=== PATIENT | female | born 1955 | race Caucasian/White ===

== ENCOUNTER 2017-04-06 18:33 | Emergency (ER) | payer SELFPAY ==
[2017-04-06 19:27] VITALS: BP 113/80
[2017-04-06 19:47] LABS: Basophils % (Auto) 0.5 % (0.0-1.8); Eosinophils % (Auto) 0.6 % (0.0-4.3); Hematocrit 39.5 % (30.3-42.9); Mean Corpuscular HGB Conc 33 % (30-34); Mean Corpuscular Hemoglobin 30 pg (28-32); Mean Corpuscular Volume 92 fl (79-97); Platelet Count 224 K/mm3 (140-440); Red Blood Count 4.28 M/mm3 (3.65-5.03); Red Cell Distribution Width 14.4 % (13.2-15.2); White Blood Count 8.9 K/mm3 (4.5-11.0)
[2017-04-06 20:22] LABS: Albumin 4.3 g/dL (3.9-5); Albumin/Globulin Ratio 1.4 %; BUN/Creatinine Ratio 15.29; Bilirubin,Total 0.3 mg/dL (0.1-1.2); Calcium 10.7 mg/dL (8.4-10.2); Chloride 103.1 mmol/L (98-107); Total Protein 7.3 g/dL (6.3-8.2)
== END 2017-04-07 00:02 | disposition left against medical advice (07) ==
LOC: ED 18:33
DX: R42 Dizziness and giddiness (principal); R51 Headache; E11.9 Type 2 diabetes mellitus without complications; I10 Essential (primary) hypertension; Z53.21 Procedure and treatment not carried out due to patient leaving prior to being seen by health care provider
CPT/HCPCS: 36415; 80053; 85025

== ENCOUNTER 2017-11-13 00:53 | Emergency (ER) | payer OTHER ==
[2017-11-13 01:19] VITALS: BP 95/65
[2017-11-13 01:48] LABS: INR 0.86 (0.87-1.13)
[2017-11-13 01:49] LABS: Partial Thromboplastin Time 28.6 Sec. (24.2-36.6); Thrombin Time 19.9 Sec. (15.1-19.6)
[2017-11-13 01:50] LABS: Basophils % (Auto) 0.5 % (0.0-1.8); Eosinophils # (Auto) 0.1 K/mm3 (0.0-0.4); Eosinophils % (Auto) 1.6 % (0.0-4.3); Hematocrit 29.9 % (30.3-42.9); Lymphocytes # (Auto) 2.1 K/mm3 (1.2-5.4); Lymphocytes % (Auto) 35.4 % (13.4-35.0); Mean Corpuscular HGB Conc 34 % (30-34); Mean Corpuscular Hemoglobin 30 pg (28-32); Mean Corpuscular Volume 90 fl (79-97); Monocytes # (Auto) 0.4 K/mm3 (0.0-0.8); Monocytes % (Auto) 7.6 % (0.0-7.3); Platelet Count 188 K/mm3 (140-440); Red Blood Count 3.31 M/mm3 (3.65-5.03); Red Cell Distribution Width 13.7 % (13.2-15.2)
--- NOTE | 2017-11-13 02:03 | Cat Scan Report ---
FINAL REPORT EXAM: CT HEAD/BRAIN WO CON HISTORY: DIZZY, SHAKEY, BLURRED VISION, SLURRED SPEECH TECHNIQUE: Routine axial imaging was obtained of the brain without IV contrast. FINDINGS: There is diminished attenuation of the periventricular and deep white matter bilaterally compatible chronic microvascular disease changes. There is no evidence of acute stroke or hemorrhage. The ventricular system is appropriate in size and is symmetric. The basal cisterns appear normal. The visualized sinuses are clear. The mastoid air cells are well pneumatized. The calvarium appears intact. IMPRESSION: Diminished attenuation of the periventricular and deep white matter compatible with chronic microvascular disease changes. No evidence of acute stroke or hemorrhage.
[2017-11-13 03:28] LABS: BUN/Creatinine Ratio 21; Blood Urea Nitrogen 25 mg/dL (7-17); Calcium 10.2 mg/dL (8.4-10.2); Hemolysis Index 4
== END 2017-11-13 16:26 | disposition left against medical advice (07) ==
LOC: ED 00:53
DX: R42 Dizziness and giddiness (principal); Z53.21 Procedure and treatment not carried out due to patient leaving prior to being seen by health care provider
CPT/HCPCS: 36415; 70450; 80048; 82962; 84484; 85025; 85610; 85670; 85730

== ENCOUNTER 2018-04-10 22:16 | Emergency (ER) | payer OTHER ==
[2018-04-11 00:32] LABS: Calcium 10.4 mg/dL (8.4-10.2)
[2018-04-11 00:33] LABS: Basophils % (Auto) 0.4 % (0.0-1.8); Eosinophils # (Auto) 0.1 K/mm3 (0.0-0.4); Eosinophils % (Auto) 1.8 % (0.0-4.3); Hematocrit 30.1 % (30.3-42.9); Hemoglobin 10.1 gm/dl (10.1-14.3); Lymphocytes # (Auto) 3.7 K/mm3 (1.2-5.4); Lymphocytes % (Auto) 51.8 % (13.4-35.0); Mean Corpuscular HGB Conc 34 % (30-34); Mean Corpuscular Hemoglobin 30 pg (28-32); Mean Corpuscular Volume 88 fl (79-97); Monocytes # (Auto) 0.5 K/mm3 (0.0-0.8); Monocytes % (Auto) 7.6 % (0.0-7.3); Platelet Count 204 K/mm3 (140-440); Red Blood Count 3.41 M/mm3 (3.65-5.03); Red Cell Distribution Width 15.3 % (13.2-15.2)
[2018-04-11 00:58] LABS: Bilirubin,Urine NEG (Negative); Blood,Urine SM (Negative); Color,Urine Straw (Yellow); Urobilinogen,Urine < 2.0 mg/dL (<2.0)
[2018-04-11] MEDS ORDERED: LOPRESSOR PO ONE (05:05)
[2018-04-11] MEDS ORDERED: KEFLEX PO ONE (05:08)
--- NOTE | 2018-04-11 05:19 | Emergency Department Report ---
ED General Adult HPI - General Chief complaint: High BP Stated complaint: HIGH BP/HEADACHE Time Seen by Provider: 04/11/18 04:52 Source: patient Mode of arrival: Ambulatory Limitations: No Limitations - History of Present Illness Initial comments: Pt was feeling off earlier today. Her daughter took her blood pressure and the top number was 180. So, she was brought to the ER for evaluation. Patient has a history of noncompliance with her blood pressure medication. She is currently taking losartan and clonidine. Patient was seen by her family doctor last week as part of a routine checkup. Her blood pressure was high at that point in time to. According to the daughter, she was just represcribed her old blood pressure medication. The daughter has noticed that over the past couple of days, the patient has been acting more on and having balance difficulties. No medication changes. - Related Data Previous Rx's Medication Instructions Recorded Last Taken Type RX: Metoprolol [Lopressor TAB] 25 mg PO BID #30 tablet 04/11/18 Unknown Rx cephALEXin [Keflex] 500 mg PO Q8HR #12 cap 04/11/18 Unknown Rx Allergies Allergy/AdvReac Type Severity Reaction Status Date / Time No Known Allergies Allergy Unverified 04/06/17 19:27 ED Review of Systems ROS: Stated complaint: HIGH BP/HEADACHE Other details as noted in HPI Comment: All other systems reviewed and negative Neurological: confusion, abnormal gait ED Past Medical Hx - Past Medical History Previous Medical History?: Yes Hx Hypertension: Yes Hx Diabetes: Yes Hx Renal Disease: Yes (stage 3) - Surgical History Past Surgical History?: Yes Additional Surgical History: x1 - Social History Smoking Status: Former Smoker Substance Use Type: None - Medications Home Medications: Home Medications Medication Instructions Recorded Confirmed Last Taken Type RX: Metoprolol [Lopressor TAB] 25 mg PO BID #30 tablet 04/11/18 Unknown Rx cephALEXin [Keflex] 500 mg PO Q8HR #12 cap 04/11/18 Unknown Rx ED Physical Exam - General Limitations: No Limitations General appearance: alert, in no apparent distress - Head Head exam: Present: atraumatic, normocephalic - Eye Eye exam: Present: normal appearance - ENT ENT exam: Present: mucous membranes moist - Neck Neck exam: Present: normal inspection - Respiratory Respiratory exam: Present: normal lung sounds bilaterally. Absent: respiratory distress - Cardiovascular Cardiovascular Exam: Present: regular rate, normal rhythm. Absent: systolic murmur, diastolic murmur, rubs, gallop - GI/Abdominal GI/Abdominal exam: Present: soft, normal bowel sounds. Absent: distended, tenderness, guarding - Extremities Exam Extremities exam: Present: normal inspection - Back Exam Back exam: Present: normal inspection - Neurological Exam Neurological exam: Present: alert, oriented X3 - Psychiatric Psychiatric exam: Present: normal affect, normal mood - Skin Skin exam: Present: warm, dry, intact, normal color. Absent: rash ED Course Vital Signs 04/10/18 23:11 Temperature 98.6 F Pulse Rate 90 Respiratory 18 Rate Blood Pressure 173/110 O2 Sat by Pulse 100 Oximetry - Reevaluation(s) Reevaluation #1: CT head is unremarkable for acute changes. I offered the patient and her daughter admission for observation. They preferred to go home. Patient will be started on metoprolol and place clonidine. She will also be given a prescription for Keflex. The patient has follow-up with her family doctor in 4 days for reevaluation. Return precautions have been discussed. Patient is cleared for discharge. 04/11/18 06:23 ED Medical Decision Making - Lab Data Result diagrams: 04/10/18 23:23 04/10/18 23:23 - EKG Data -: EKG Interpreted by Me EKG shows normal: sinus rhythm, axis, intervals, QRS complexes, ST-T waves Rate: normal - EKG Data Interpretation: no acute changes - Radiology Data Radiology results: report reviewed, image reviewed - Medical Decision Making 62 yo female with pmhx medication noncompliance, HTN that p/w elevated BP. Pt denies h/a at this time. BP is 220/112. She denied symptoms of her hypertension. Given patient's history of intermittent compliance, I do not think that clonidine as best medication for given its known side effect for rebound hypertension. The daughter agree with this. Patient was started on a low-dose metoprolol. She has follow-up with her new family doctor in 4-5 days. I have instructed them to keep a blood pressure diary in the meantime. Urinalysis shows concerns for an early UTI. This likely could explain the patient's personality change, as well as mild difficulty walking. Post x-ray the patient with Keflex. Lab work shows mild hypokalemia with potassium of 3.4. It will be orally repleted. - Differential Diagnosis ICH, uti, acs, arrhythmia, electrolyte abnormality, dehydration, alzheimer' Critical care attestation.: If time is entered above; I have spent that time in minutes in the direct care of this critically ill patient, excluding procedure time. ED Disposition Clinical Impression: UTI (urinary tract infection), Hypertension Disposition: TO HOME OR SELFCARE Is pt being admited?: No Does the pt Need Aspirin: No Condition: Stable Instructions: Hypertension (ED), Urinary Tract Infection in Women (ED) Additional Instructions: Please follow-up with your family doctor in the next 4-5 days. If things worsen in the meantime or become concerning, please return to the ER for reevaluation. Prescriptions: cephALEXin [Keflex] 500 mg PO Q8HR #12 cap RX: Metoprolol [Lopressor TAB] 25 mg PO BID #30 tablet Referrals: LAURA GILLESPIE MD [Primary Care Provider] - 3-5 Days
[2018-04-11] MEDS ORDERED: COZAAR PO ONE (05:32)
[2018-04-11] MEDS ORDERED: NORVASC PO ONE (05:32)
[2018-04-11] MEDS ORDERED: HCTZ PO ONE (05:32)
--- NOTE | 2018-04-11 05:53 | Cat Scan Report ---
FINAL REPORT EXAM: CT HEAD/BRAIN WO CON HISTORY: h/a, with h/o uncontrolled htn TECHNIQUE: Routine axial imaging was obtained of the brain without IV contrast. Comparison is made study of 11/13/2017. FINDINGS: There is mildly diminished attenuation of the periventricular and deep white matter compatible with chronic microvascular disease changes. There is no evidence of acute stroke or hemorrhage. The ventricular system is appropriate in size. The visualized sinuses are clear. The mastoid air cells are well pneumatized. IMPRESSION: Diminished attenuation of the periventricular and deep white matter compatible with chronic microvascular disease changes. No evidence of acute stroke or hemorrhage.
[2018-04-11 06:39] VITALS: BP 169/98
== END 2018-04-11 07:00 | disposition home or self-care (01) ==
LOC: ED 22:16
DX: I12.9 Hypertensive chronic kidney disease with stage 1 through stage 4 chronic kidney disease, or unspecified chronic kidney disease (principal); N39.0 Urinary tract infection, site not specified; R51 Headache; E11.22 Type 2 diabetes mellitus with diabetic chronic kidney disease; N18.3 Chronic kidney disease, stage 3 (moderate); Z87.891 Personal history of nicotine dependence
CPT/HCPCS: 36415; 70450; 80048; 81001; 82805; 83880; 84484; 85025; 93005; 93010

== ENCOUNTER 2019-02-02 07:46 | Emergency (ER) | payer OTHER ==
[2019-02-02] MEDS ORDERED: ASPIRIN PO ONE (07:52)
[2019-02-02] MEDS ORDERED: D50W (25GM) Syringe IV ONE ×2 (08:29→08:30)
[2019-02-02 08:33] LABS: Basophils # (Auto) 0.1 K/mm3 (0.0-0.1); Basophils % (Auto) 0.8 % (0.0-1.8); Eosinophils # (Auto) 0.2 K/mm3 (0.0-0.4); Eosinophils % (Auto) 2.1 % (0.0-4.3); Hematocrit 32.2 % (30.3-42.9); Hemoglobin 11.3 gm/dl (10.1-14.3); Lymphocytes # (Auto) 3.4 K/mm3 (1.2-5.4); Lymphocytes % (Auto) 41.9 % (13.4-35.0); Mean Corpuscular HGB Conc 35 % (30-34); Mean Corpuscular Volume 93 fl (79-97); Monocytes # (Auto) 0.8 K/mm3 (0.0-0.8); Monocytes % (Auto) 9.6 % (0.0-7.3); Platelet Count 234 K/mm3 (140-440); Red Blood Count 3.48 M/mm3 (3.65-5.03); Red Cell Distribution Width 13.8 % (13.2-15.2)
--- NOTE | 2019-02-02 08:38 | XRay Report ---
PROCEDURE: XR CHEST 1V AP TECHNIQUE: Chest radiograph single view. HISTORY: Chest Pain COMPARISONS: None . FINDINGS: No mediastinal shift. Cardiac silhouette is not enlarged. No pneumothorax, effusion, or focal pulmona ry opacity identified. No acute skeletal findings. IMPRESSION: No acute pulmonary finding identified. This document is electronically signed by Huber Pennington MD., February 02 2019 08:35:59 AM ET
[2019-02-02 08:41] LABS: INR 0.95 (0.87-1.13); Partial Thromboplastin Time 25.5 Sec. (24.2-36.6)
[2019-02-02 08:54] LABS: Albumin 3.9 g/dL (3.9-5); Calcium 9.9 mg/dL (8.4-10.2)
--- NOTE | 2019-02-02 09:57 | Cat Scan Report ---
PROCEDURE: CT HEAD/BRAIN WO CON TECHNIQUE: Computerized tomography of the head was performed without contrast material. CT DOSE LENGTH PRODUCT: 805.4 mGy-cm. HISTORY: headache COMPARISONS: CT head April 11, 2018. FINDINGS: Decreased attenuation regions in the periventricular and subcortical white matter are nonspecific and may represent small vessel ischemic disease, encephalopathy, edema, or a demyelinating process. Smal l vessel ischemic disease (leukoaraiosis) favored. Vascular calcifications. There is no evidence for acute ischemia. There is no hemorrhage. There is no midline shift. There is no hydrocephalus. There is no mass. Age appropriate riley-white matter attenuation is noted. There is no calvarial fracture. The temporal bones demonstrate aerated mastoid air cells. The middle ears appear unremarkable. Mild mucosal thickening both ethmoid sinuses. Globes are intact. IMPRESSION: * Comparison with prior will be made as an addendum once requested prior images and report are provi ded. * No acute intracranial findings. * Chronic ischemic disease. This document is electronically signed by Stephan Osborne MD., February 02 2019 09:55:27 AM ET
[2019-02-02] MEDS ORDERED: K-DUR PO ONE (12:04)
--- NOTE | 2019-02-02 12:04 | Emergency Department Report ---
ED General Adult HPI - General Chief complaint: Syncope Stated complaint: PASSED OUT Time Seen by Provider: 02/02/19 08:08 Source: patient, family Mode of arrival: Wheelchair Limitations: No Limitations - History of Present Illness Initial comments: 63-year-old female who is a poor historian. He is on glipizide. She did not take her usual insulin this morning. She does not check her sugar. She had an episode of weakness and dizziness but again did not check her sugar. She did not pass out. She did not experience any focal weakness or numbness. She complains of a mild headache. She does not complain of any chest pain. She did not have nausea vomiting or diarrhea. She's had no recent fever or chills. The patient's first language does not appear to be Czech. She is here with her daughter that provides some additional information. Patient states that he "had a stroke 3 months ago". She did not go to the physician or hospital at at time. She states she has never had a CT of her head. According to her daughter she has episodes of weakness as she did today. -: Gradual, minutes(s) Severity scale (0 -10): 0 Consistency: now resolved Improves with: none Worsens with: none Associated Symptoms: denies other symptoms, weakness Treatments Prior to Arrival: none - Related Data Home Medications Medication Instructions Recorded Confirmed Last Taken Metoprolol [Lopressor TAB] 50 mg PO BID 02/02/19 02/02/19 Unknown amLODIPine 10 mg PO DAILY 02/02/19 02/02/19 Unknown glipiZIDE 5 mg PO BID 02/02/19 02/02/19 Unknown Allergies Allergy/AdvReac Type Severity Reaction Status Date / Time No Known Allergies Allergy Verified 02/02/19 08:19 ED Review of Systems ROS: Stated complaint: PASSED OUT Other details as noted in HPI Constitutional: weakness. denies: chills, fever Eyes: denies: eye pain, eye discharge, vision change ENT: denies: ear pain, throat pain Respiratory: denies: cough, shortness of breath, wheezing Cardiovascular: denies: chest pain, palpitations Endocrine: no symptoms reported Gastrointestinal: denies: abdominal pain, nausea, diarrhea Genitourinary: denies: urgency, dysuria, discharge Musculoskeletal: denies: back pain, joint swelling, arthralgia Skin: denies: rash, lesions Neurological: denies: headache, weakness, paresthesias Psychiatric: denies: anxiety, depression Hematological/Lymphatic: denies: easy bleeding, easy bruising ED Past Medical Hx - Past Medical History Previous Medical History?: Yes Hx Hypertension: Yes Hx Diabetes: Yes Hx Renal Disease: Yes (stage 3) - Surgical History Past Surgical History?: Yes Additional Surgical History: x1 - Social History Smoking Status: Never Smoker Substance Use Type: Prescribed - Medications Home Medications: Home Medications Medication Instructions Recorded Confirmed Last Taken Type Metoprolol [Lopressor TAB] 50 mg PO BID 02/02/19 02/02/19 Unknown History amLODIPine 10 mg PO DAILY 02/02/19 02/02/19 Unknown History glipiZIDE 5 mg PO BID 02/02/19 02/02/19 Unknown History ED Physical Exam - General Limitations: No Limitations General appearance: alert, in no apparent distress - Head Head exam: Present: atraumatic, normocephalic - Eye Eye exam: Present: normal appearance. Absent: scleral icterus - ENT ENT exam: Present: mucous membranes moist, other (forehead furrow asymmetry) - Neck Neck exam: Present: normal inspection, other (no carotid bruit). Absent: tenderness, meningismus - Respiratory Respiratory exam: Present: normal lung sounds bilaterally. Absent: respiratory distress - Cardiovascular Cardiovascular Exam: Present: regular rate, normal rhythm. Absent: systolic murmur, diastolic murmur, rubs, gallop - GI/Abdominal GI/Abdominal exam: Present: soft, normal bowel sounds. Absent: distended, tenderness, guarding, rebound, rigid - Extremities Exam Extremities exam: Present: normal inspection - Back Exam Back exam: Present: normal inspection - Neurological Exam Neurological exam: Present: alert, oriented X3. Absent: CN II-XII intact, motor sensory deficit - Psychiatric Psychiatric exam: Present: normal mood, flat affect - Skin Skin exam: Present: warm, dry, intact, normal color. Absent: rash ED Course Vital Signs 02/02/19 02/02/19 02/02/19 07:48 08:06 08:15 Temperature 97.8 F Pulse Rate 76 76 77 Respiratory 18 16 13 Rate Blood Pressure 181/103 159/102 Blood Pressure [Right] O2 Sat by Pulse 99 100 Oximetry 02/02/19 02/02/19 02/02/19 08:30 08:45 08:51 Temperature Pulse Rate 75 74 74 Respiratory 11 L 20 13 Rate Blood Pressure 159/102 Blood Pressure 160/96 [Right] O2 Sat by Pulse 100 100 100 Oximetry 02/02/19 02/02/19 02/02/19 09:00 10:03 10:16 Temperature Pulse Rate 74 Respiratory 14 Rate Blood Pressure 161/96 160/96 150/90 Blood Pressure [Right] O2 Sat by Pulse 100 100 100 Oximetry 02/02/19 02/02/19 02/02/19 10:30 10:46 11:00 Temperature Pulse Rate Respiratory Rate Blood Pressure 158/101 158/101 165/106 Blood Pressure [Right] O2 Sat by Pulse 100 100 100 Oximetry 02/02/19 02/02/19 11:16 11:30 Temperature Pulse Rate Respiratory Rate Blood Pressure 150/90 160/97 Blood Pressure [Right] O2 Sat by Pulse 100 100 Oximetry - Reevaluation(s) Reevaluation #1: Patient Accu-Chek done upon my encounter. It was low she was given a half an amp of D50. Her blood sugar was found to be 46. She was fed. Repeat sugar was 85. Patient states that she felt better. We will check a urinalysis. Referral for outpatient follow-up is anticipated. 02/02/19 12:30 Reevaluation #2: Remains alert and asymptomatic. Told to DC glipizide. Follow-up at [facility]. There are no stroke symptoms. 02/02/19 13:11 ED Medical Decision Making - Lab Data Result diagrams: 02/02/19 08:12 02/02/19 08:12 Laboratory Results - last 24 hr 02/02/19 02/02/19 02/02/19 08:12 08:12 08:12 WBC 8.0 RBC 3.48 L Hgb 11.3 Hct 32.2 MCV 93 MCH 32 MCHC 35 H RDW 13.8 Plt Count 234 Lymph % (Auto) 41.9 H Elbert % (Auto) 9.6 H Eos % (Auto) 2.1 Baso % (Auto) 0.8 Lymph # 3.4 Elbert # 0.8 Eos # 0.2 Baso # 0.1 Seg Neutrophils % 45.6 Seg Neutrophils # 3.7 PT 13.2 INR 0.95 APTT 25.5 Sodium Potassium Chloride Carbon Dioxide Anion Gap BUN Creatinine Estimated GFR BUN/Creatinine Ratio Glucose POC Glucose Calcium Total Bilirubin AST ALT Alkaline Phosphatase Troponin T < 0.010 Total Protein Albumin Albumin/Globulin Ratio 02/02/19 02/02/19 02/02/19 08:12 08:29 10:12 WBC RBC Hgb Hct MCV MCH MCHC RDW Plt Count Lymph % (Auto) Elbert % (Auto) Eos % (Auto) Baso % (Auto) Lymph # Elbert # Eos # Baso # Seg Neutrophils % Seg Neutrophils # PT INR APTT Sodium 144 Potassium 3.2 L Chloride 104.1 Carbon Dioxide 28 Anion Gap 15 BUN 27 H Creatinine 1.3 H Estimated GFR 42 BUN/Creatinine Ratio 21 Glucose 46 L POC Glucose 53 L 85 Calcium 9.9 Total Bilirubin 0.20 AST 10 ALT 10 Alkaline Phosphatase 73 Troponin T Total Protein 7.1 Albumin 3.9 Albumin/Globulin Ratio 1.2 - EKG Data -: EKG Interpreted by Me EKG shows normal: sinus rhythm, intervals, QRS complexes, ST-T waves Rate: normal - EKG Data Interpretation: LVH (consider), other (left axis deviation) - Radiology Data Radiology results: report reviewed FINDINGS: Decreased attenuation regions in the periventricular and subcortical white matter are nonspecific and may represent small vessel ischemic disease, encephalopathy, edema, or a demyelinating process. Small vessel ischemic disease (leukoaraiosis) favored. Vascular calcifications. There is no evidence for acute ischemia. There is no hemorrhage. There is no midline shift. There is no hydrocephalus. There is no mass. Age appropriate riley-white matter attenuation is noted. There is no calvarial fracture. The temporal bones demonstrate aerated mastoid air cells. The middle ears appear unremarkable. Mild mucosal thickening both ethmoid sinuses. Globes are intact. IMPRESSION: * Comparison with prior will be made as an addendum once requested prior images and report are provided. * No acute intracranial findings. * Chronic ischemic disease. Critical care attestation.: If time is entered above; I have spent that time in minutes in the direct care of this critically ill patient, excluding procedure time. ED Disposition Clinical Impression: Hypoglycemia, Insulin dependent diabetes mellitus Disposition: DC-01 TO HOME OR SELFCARE Is pt being admited?: No Does the pt Need Aspirin: No Condition: Stable Instructions: Diabetic Hypoglycemia (ED), Diabetes Mellitus Type 2 in Adults (ED) Additional Instructions: Stop glipizide medicine. Follow-up at this outside medical clinic. Return any acute change or problem. It is necessary to check your sugar when you on these type medicines. The glipizide medicine can cause hypoglycemia. I do not recommend that medicine at this time. Referrals: OFE BONE MD [Primary Care Provider] - 24 Hours Time of Disposition: 13:12
[2019-02-02 12:58] LABS: Bilirubin,Urine NEG (Negative); Blood,Urine NEG (Negative); Color,Urine Yellow (Yellow); Urobilinogen,Urine < 2.0 mg/dL (<2.0)
[2019-02-02 13:12] VITALS: BP 154/96
== END 2019-02-02 13:29 | disposition home or self-care (01) ==
LOC: ED 07:46
DX: E13.22 Other specified diabetes mellitus with diabetic chronic kidney disease (principal); E13.65 Other specified diabetes mellitus with hyperglycemia; I12.9 Hypertensive chronic kidney disease with stage 1 through stage 4 chronic kidney disease, or unspecified chronic kidney disease; N18.3 Chronic kidney disease, stage 3 (moderate)
CPT/HCPCS: 36415; 70450; 71045; 80053; 81001; 82962; 84484; 85025; 85610; 85730; 93005; 93010; 96374

== ENCOUNTER 2019-04-27 13:12 | Emergency (ER) | payer SELFPAY ==
--- NOTE | 2019-04-27 13:25 | Event Note ---
ED Screening Note Date of service: 04/27/19 Time: 13:20 ED Screening Note: 63 y o female with pmh of DM, HTN presenst for right sided headaceh and ear pain and drainage to r ear causing pain swelling to outer ear This initial assessment/diagnostic orders/clinical plan/treatment(s) is/are subject to change based on patients health status, clinical progression and re- assessment by fellow clinical providers in the ED. Further treatment and workup at subsequent clinical providers discretion. Patient/guardian urged not to elope from the ED as their condition may be serious if not clinically assessed and managed. Initial orders include: Main eval labs ct head?
[2019-04-27 14:08] LABS: Basophils # (Auto) 0.1 K/mm3 (0.0-0.1); Basophils % (Auto) 0.8 % (0.0-1.8); Eosinophils # (Auto) 0.1 K/mm3 (0.0-0.4); Eosinophils % (Auto) 1.2 % (0.0-4.3); Hematocrit 31.9 % (30.3-42.9); Hemoglobin 11.2 gm/dl (10.1-14.3); Lymphocytes # (Auto) 2.6 K/mm3 (1.2-5.4); Lymphocytes % (Auto) 32.6 % (13.4-35.0); Mean Corpuscular HGB Conc 35 % (30-34); Mean Corpuscular Volume 93 fl (79-97); Monocytes # (Auto) 0.8 K/mm3 (0.0-0.8); Monocytes % (Auto) 9.8 % (0.0-7.3); Platelet Count 255 K/mm3 (140-440); Red Blood Count 3.44 M/mm3 (3.65-5.03); Red Cell Distribution Width 13.8 % (13.2-15.2)
[2019-04-27 14:22] LABS: Calcium 10.1 mg/dL (8.4-10.2)
[2019-04-27 14:38] LABS: INR 0.88 (0.87-1.13)
[2019-04-27 14:43] LABS: Erythrocyte Sedimentation Rate 41 mm/Hr (0-20)
--- NOTE | 2019-04-27 14:59 | Cat Scan Report ---
CT head/brain wo con INDICATION: Headache. TECHNIQUE: Routine CT head without contrast. All CT scans at this location are performed using CT dos e reduction for ALARA by means of automated exposure control. COMPARISON: Head CT on 02/02/2019. FINDINGS: BRAIN / INTRACRANIAL CONTENTS: No acute hemorrhage, mass effect, midline shift, or hydrocephalus. No appreciable acute large territorial or lacunar infarct. There is stable moderate chronic microangiopa thic change in white matter. ORBITS: No significant abnormality of visualized orbits. SINUSES / MASTOIDS: There is trace mucosal thickening in the right sphenoid sinus and right mastoid a ir cells without aggressive features. ADDITIONAL FINDINGS: None. IMPRESSION: 1. No acute intracranial abnormality. No adverse change from the prior exam. Signer Name: Yuriy Krishnan MD Signed: 04/27/2019 2:55 PM Workstation Name: [id number]
[2019-04-27] MEDS ORDERED: NORMODYNE PO ONE (16:53)
--- NOTE | 2019-04-27 18:26 | Emergency Department Report ---
ED General Adult HPI - General Chief complaint: Headache Stated complaint: HBP/EAR DRAINAGE/HEADACHE Time Seen by Provider: 04/27/19 13:18 Source: patient, family Mode of arrival: Wheelchair Limitations: No Limitations - History of Present Illness Initial comments: Mrs. Holbrook is a 63-year-old female with history of hypertension and diabetes mellitus who presents with right ear pain and drainage with a right temporal headache. Gradual onset of symptoms 2 days ago. Blood pressure is elevated due to lack of access to care. She recently lost INSURANCE AND ACCESS TO HER HEALTHCARE PROVIDER. THE EAR INFECTION WAS CAUSED BY PROLONGED ACCESS TO RUNNING WATER TO THE EAR. SHE CLEANS OUT HER EAR WITH RUNNING WATER FROM faucet tap. SHE HAS YELLOWISH DRAINAGE and SWELLING ON THE OUTER EAR. DENIES FEVER. DENIES VISUAL CHANGES. MILD SYMPTOMS. -: Gradual, days(s) (2) Location: head Quality: aching, dull Improves with: none Worsens with: other (movement and palpation) Associated Symptoms: headaches - Related Data Home Medications Medication Instructions Recorded Confirmed Last Taken Metoprolol [Lopressor TAB] 50 mg PO BID 02/02/19 02/02/19 Unknown amLODIPine 10 mg PO DAILY 02/02/19 02/02/19 Unknown glipiZIDE 5 mg PO BID 02/02/19 02/02/19 Unknown Previous Rx's Medication Instructions Recorded Last Taken Type Ciprofloxacin/Hydrocortisone 3 drop OT BID 7 Days #1 bottle 04/27/19 Unknown Rx [Ciprofloxacin HC OTIC] Lisinopril [Zestril TAB] 40 mg PO QDAY #30 tablet 04/27/19 Unknown Rx amLODIPine [Norvasc] 10 mg PO DAILY #30 tab 04/27/19 Unknown Rx metFORMIN [Glucophage] 500 mg PO BID 30 Days #60 tablet 04/27/19 Unknown Rx Allergies Allergy/AdvReac Type Severity Reaction Status Date / Time No Known Allergies Allergy Verified 02/02/19 08:19 ED Review of Systems ROS: Stated complaint: HBP/EAR DRAINAGE/HEADACHE Other details as noted in HPI Comment: All other systems reviewed and negative Constitutional: denies: fever, malaise ENT: ear pain. denies: congestion Respiratory: denies: shortness of breath Cardiovascular: denies: chest pain ED Past Medical Hx - Past Medical History Previous Medical History?: Yes Hx Hypertension: Yes Hx Diabetes: Yes Hx Renal Disease: Yes (stage 3) - Surgical History Additional Surgical History: x1 - Social History Smoking Status: Never Smoker Substance Use Type: None - Medications Home Medications: Home Medications Medication Instructions Recorded Confirmed Last Taken Type Metoprolol [Lopressor TAB] 50 mg PO BID 02/02/19 02/02/19 Unknown History amLODIPine 10 mg PO DAILY 02/02/19 02/02/19 Unknown History glipiZIDE 5 mg PO BID 02/02/19 02/02/19 Unknown History Ciprofloxacin/Hydrocortisone 3 drop OT BID 7 Days #1 bottle 04/27/19 Unknown Rx [Ciprofloxacin HC OTIC] Lisinopril [Zestril TAB] 40 mg PO QDAY #30 tablet 04/27/19 Unknown Rx amLODIPine [Norvasc] 10 mg PO DAILY #30 tab 04/27/19 Unknown Rx metFORMIN [Glucophage] 500 mg PO BID 30 Days #60 tablet 04/27/19 Unknown Rx ED Physical Exam - General Limitations: No Limitations General appearance: alert, in no apparent distress - Head Head exam: Present: atraumatic, normocephalic - Eye Eye exam: Present: normal appearance - ENT ENT exam: Present: other (right ear is slightly edematous and very tender to palpation and movement, copious amount of white discharge) - Neck Neck exam: Present: normal inspection, full ROM - Respiratory Respiratory exam: Present: normal lung sounds bilaterally. Absent: respiratory distress, wheezes, rales, rhonchi - Cardiovascular Cardiovascular Exam: Present: regular rate, normal rhythm, normal heart sounds. Absent: systolic murmur, diastolic murmur, rubs, gallop - GI/Abdominal GI/Abdominal exam: Present: soft, normal bowel sounds. Absent: distended, tenderness, guarding, rebound - Extremities Exam Extremities exam: Present: normal inspection - Back Exam Back exam: Present: normal inspection - Neurological Exam Neurological exam: Present: alert, oriented X3 - Psychiatric Psychiatric exam: Present: normal affect, normal mood - Skin Skin exam: Present: warm, dry, intact, normal color. Absent: rash ED Course Vital Signs 04/27/19 04/27/19 13:23 17:22 Temperature 98.9 F Pulse Rate 102 H 94 H Respiratory 18 Rate Blood Pressure 185/120 204/129 O2 Sat by Pulse 99 Oximetry ED Medical Decision Making - Lab Data Result diagrams: 04/27/19 13:38 04/27/19 13:38 Laboratory Results - last 24 hr 04/27/19 04/27/19 04/27/19 13:38 13:38 13:38 WBC 7.9 RBC 3.44 L Hgb 11.2 Hct 31.9 MCV 93 MCH 32 MCHC 35 H RDW 13.8 Plt Count 255 Lymph % (Auto) 32.6 [place] % (Auto) 9.8 H Eos % (Auto) 1.2 Baso % (Auto) 0.8 Lymph # 2.6 [place] # 0.8 Eos # 0.1 Baso # 0.1 Seg Neutrophils % 55.6 Seg Neutrophils # 4.4 ESR 41 PT 11.7 L INR 0.88 Sodium 140 Potassium 3.3 L Chloride 101.5 Carbon Dioxide 28 Anion Gap 14 BUN 17 Creatinine 1.3 H Estimated GFR 42 BUN/Creatinine Ratio 13 Glucose 213 H Calcium 10.1 - Medical Decision Making 1. Right Otitis externa due to extensive water exposure, prescribed ciprofloxacin otic drops, strongly instructed to avoid moisture in the range of the right ear 2. Hypertensive urgency due to medication noncompliance with lack of access to care. I have provided prescription for antihypertensive medications which are free at local [facility] 3. History of diabetes mellitus: Prescribed metformin Critical care attestation.: If time is entered above; I have spent that time in minutes in the direct care of this critically ill patient, excluding procedure time. ED Disposition Clinical Impression: Right otitis externa, Hypertensive urgency, Diabetes mellitus Disposition: [id number] TO HOME OR SELFCARE Is pt being admited?: No Does the pt Need Aspirin: No Condition: Stable Instructions: Otitis Externa (ED) Additional Instructions: These medications should be free at local [employer] grocery store. Prescriptions: Ciprofloxacin/Hydrocortisone [Ciprofloxacin HC OTIC] 3 drop OT BID 7 Days #1 bottle metFORMIN [Glucophage] 500 mg PO BID 30 Days #60 tablet amLODIPine [Norvasc] 10 mg PO DAILY #30 tab Lisinopril [Zestril TAB] 40 mg PO QDAY #30 tablet Referrals: [facility] [Outside] - 3-5 Days
[2019-04-27 18:50] VITALS: BP 213/126
== END 2019-04-27 18:52 | disposition home or self-care (01) ==
LOC: ED 13:12
DX: H60.91 Unspecified otitis externa, right ear (principal); I10 Essential (primary) hypertension; E11.9 Type 2 diabetes mellitus without complications; Z79.899 Other long term (current) drug therapy
CPT/HCPCS: 36415; 70450; 80048; 85025; 85610; 85652